=== PATIENT | female | born 1970 | race Two or more races ===

== ENCOUNTER 2022-10-09 21:23 | Emergency (ER) | payer OTHER ==
[~2022-10-09] VITALS: Ht 162.6 cm; Wt 68.5 kg
[~2022-10-09 21:23] MED LIST: BENZONATATE100 MG PO; BONTRIL SLOW-R105 MG PO; BUCALSEP SPRAY30 ML MM; CYTOMEL25 MCG PO; FUROSEMIDE20 MG PO
[2022-10-09] MEDS ORDERED: NORVASC2.5 MG (21:49)
== END 2022-10-09 22:26 | disposition home or self-care (01) ==
LOC: ER 21:23
DX: L03.012 Cellulitis of left finger (principal)